=== PATIENT | female | born 1970 ===

== ENCOUNTER 2018-03-28 08:13 | Day surgery (SDC) | payer OTHER ==
[2018-03-23 12:43] VITALS: BMI 27.8
[2018-03-28] MEDS ORDERED: Midazolam 2 MG/2 ML VIAL ONE (08:59)
[2018-03-28] MEDS ORDERED: Propofol 10 mg/ml Inj (20 ML) ONE (09:00)
[2018-03-28] MEDS ORDERED: Lidocaine Hydrochloride 10 ML INJ ONE (09:18)
[2018-03-28] MEDS ORDERED: HYDROmorphone 0.5 mg/0.5 ml ISec IVP PRN (09:53)
--- NOTE | 2018-03-28 09:54 | PCM.SURG1 ---
Surgeon's Initial Post Op Note - Surgeon's Notes Surgeon: Dr. Clements Third Cook: Dr. Lofton PGY3 Type of Anesthesia: IV Sedation Pre-Operative Diagnosis: Removal of darron cath Operative Findings: see op report Post-Operative Diagnosis: same Operation Performed: removal of right subclavian portacath Specimen/Specimens Removed: portacath Estimated Blood Loss: EBL {In ML}: 2 Blood Products Given: N/A Drains Used: No Drains Post-Op Condition: Good Date of Surgery/Procedure: 03/28/18 Time of Surgery/Procedure: 09:53
[2018-03-28] MEDS ORDERED: Lactated Ringer's 1,000 ML IV SCH (10:00)
[2018-03-28 11:15] VITALS: RESP 16; O2SAT 99
[2018-03-28 12:13] VITALS: BP 159/99; PULSE 78; TEMP 98.8
--- NOTE | 2018-03-29 21:06 | OP ---
Copied To: Jocelyn Clements MD Attending MD: Jocelyn Clements MD PROCEDURE DATE: 03/28/2018 SURGEON: Jocelyn Clements MD [employer] REPA[employer]ER: Zhang Lofton DO ANESTHESIA: Local with IV sedation. SPEECH CORRECTION CONSULTANT: Jaiden Montemayor CRNA. PREOPERATIVE DIAGNOSIS: Completed chemotherapy. POSTOPERATIVE DIAGNOSIS: Completed chemotherapy.. PROCEDURE: Removal of right subclavian Port-A-Cath. DESCRIPTION OF PROCEDURE: With the patient in the supine position having received IV sedation, the right upper chest was prepped and draped in the usual sterile manner. The patient was noted to have a well-healed Port-A-Cath, entering the right subclavian vein. The skin overlying the insertion incision was infiltrated with 1% lidocaine and the pocket incision was reopened. The incision was deepened down to contact with the hub of the Port-A-Cath. The catheter was dissected and extracted from the vein and then using gentle traction on the catheter, the reservoir was sharply dissected free of the pocket and removed. The pocket was examined for hemostasis. Closure was performed with running subcuticular suture of 4-0 Monocryl and Steri-Strips. The dry sterile dressing was applied. The patient tolerated the procedure well and transferred to recovery room in stable condition. Estimated blood loss of the procedure was 2 mL. Jocelyn Clements MD
== END 2018-03-28 12:12 | disposition home or self-care (01) ==
LOC: C.SDS 08:13
PROVIDERS: ATTEND Specialist
DX: Z45.2 Encounter for adjustment and management of vascular access device (principal); Z85.3 Personal history of malignant neoplasm of breast; Z92.21 Personal history of antineoplastic chemotherapy
CPT/HCPCS: 36590; 88300; J2250; J2704; J3010